=== PATIENT | male | born 1955 | race Caucasian/White ===

== ENCOUNTER 2021-03-21 03:23 | Outpatient (CLI) | payer OTHER, SELFPAY ==
[2021-03-21 07:23] LABS: CREATININE 0.9 mg/dL (0.70-1.30)
== END 2021-03-21 03:24 | disposition home or self-care (01) ==
LOC: LBO 03:23
PROVIDERS: PCP Nurse Practitioner Family; Visit Provider Preventive Medicine Undersea and Hyperbaric Medicine
DX: C32.9 Malignant neoplasm of larynx, unspecified (principal)
CPT/HCPCS: 36415; 82565

== ENCOUNTER 2021-08-03 00:39 | Outpatient (CLI) | payer OTHER, SELFPAY ==
[2021-08-03 12:22] LABS: CREATININE 0.9 mg/dL (0.70-1.30)
[2021-08-03] MEDS: Omnipaque 350 MG/ML 100 ML BTL IJ (13:39)
[2021-08-03] MEDS: Normal Saline - Diluent 50 ML VIAL IV (13:40)
[2021-08-03] MEDS: Normal Saline Flush 10 ML SYR IVP (13:40)
--- NOTE | 2021-08-03 13:45 | DI.CT_ITS ---
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 Images obtained through the lung apices are unremarkable. No vascular abnormality seen. The salivar y glands appear intact. No cervical mass or adenopathy identified. The visualized intracranial and orbital structures appear intact. 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 No definite mass identified at this [place] or elsewhere in the larynx. Current examination is compared with prior examination from [facility] January 2021 and there has been no significant interval change in appearance since that time. IMPRESSION: No evidence of metastatic disease of the cervical region in a patient reported history vocal cord silver plasm. RADIATION DOSE DELIVERED: 436.3mGy.cm Total DLP 14.14mGy CTDIvol RADIATION OPTIMIZATION: All CT scans at this facility use at least one of these dose optimization te chniques: automated exposure control; mA and/or kV adjustment per patient size (includes targeted exa ms where dose is matched to clinical indication); or iterative reconstruction.
== END 2021-08-03 00:59 ==
PROVIDERS: PCP Nurse Practitioner Family; Visit Provider Preventive Medicine Undersea and Hyperbaric Medicine
DX: C32.0 Malignant neoplasm of glottis (principal)
CPT/HCPCS: 70491; 82565; J3490